=== PATIENT | male | born 1940 | race Caucasian/White ===

== ENCOUNTER 2021-01-23 10:22 | Observation (INO) | payer OTHER, MEDICARE ==
[~2021-01-23] VITALS: Ht 170.2 cm; Wt 96.0 kg
[2021-01-23] MEDS: SODIUM CHLORIDE 0.9% 1,000 ML IV SCH ×2 (11:00→19:00)
[2021-01-23] MEDS ORDERED: CHOL10003 PO (11:11)
[2021-01-23] MEDS ORDERED: MAGN400T36 PO (11:11)
[2021-01-23] MEDS ORDERED: FENO48TA10 PO (11:11)
[2021-01-23] MEDS ORDERED: AMLO-150 PO (11:11)
[2021-01-23] MEDS ORDERED: CHLO50TA PO (11:11)
[2021-01-23] MEDS ORDERED: METO50TA82 PO (11:11)
[2021-01-23] MEDS ORDERED: DOCU-183 PO (11:11)
[2021-01-23] MEDS ORDERED: ASPI81TA45 PO (11:11)
[2021-01-23] MEDS ORDERED: BENA20TA54 PO (11:11)
[2021-01-23] MEDS ORDERED: PIOG15TA69 PO (11:11)
[2021-01-23] MEDS ORDERED: IRON1TAB60 PO (11:11)
[2021-01-23] MEDS ORDERED: ROSU10TA2 PO (11:11)
[2021-01-23] MEDS ORDERED: PARI1CAP3 PO (11:11)
[2021-01-23 11:22] VITALS: BP 143/70
[2021-01-23] MEDS ORDERED: PLEASE ENTER HEIGHT AND WEIGHT MC SCH (11:30)
[2021-01-23 11:35] LABS: BASOPHILS % (AUTO) 1 % (0-1); EOSINOPHILS % (AUTO) 4 % (1-7); LYMPHOCYTES % (AUTO) 21 % (22-44); MEAN CORPUSCULAR HEMOGLOBIN 30.4 pg (27.5-34.5); MEAN CORPUSCULAR HGB CONC 33.4 g/dL (33.2-36.2); MEAN PLATELET VOLUME 8.2 fL (7.4-10.4); MONOCYTES % (AUTO) 9 % (2-9); NEUTROPHILS % (AUTO) 65 % (42-75); PLATELET COUNT 236 x10^3/uL (130-400); RED BLOOD COUNT 4.38 x10^6/uL (4.38-5.82); RED CELL DISTRIBUTION WIDTH 14.4 % (9.4-14.8)
[2021-01-23 11:42] LABS: MD NO
[2021-01-23 11:44] LABS: ANION GAP 5 mmol/L (5-15); CHLORIDE 116 mmol/L (98-107); CREATININE 2.76 mg/dL (0.7-1.3)
[2021-01-23] MEDS ORDERED: MIDAZOLAM 1 MG/ML, 5ML ONE (11:50)
[2021-01-23] MEDS ORDERED: FENTANYL PF 100 MCG/2ML ONE (11:50)
[2021-01-23] MEDS ORDERED: LIDOCAINE 1%, 20ML ONE (11:50)
[2021-01-23] MEDS ORDERED: CEFAZOLIN 1,000 MG ONE (11:50)
[2021-01-23] MEDS ORDERED: CEFAZOLIN PMX 1GM/50ML 50 ML ONE (11:50)
[2021-01-23] MEDS ORDERED: HOLD MEDICATION MC PRN (13:30)
[2021-01-23 14:00] VITALS: BP 135/75
[2021-01-23] MEDS ORDERED: HYDROcodone/APAP 5/325 TABLET PO PRN (14:00)
[2021-01-23] MEDS ORDERED: BENAZEPRIL MC SCH (14:30)
[2021-01-23 18:47] VITALS: BP 136/83
[2021-01-23] MEDS: SODIUM CHLORIDE FLUSH 10ML SYR IVF SCH (20:13)
[2021-01-23] MEDS: METOPROLOL TARTRATE 50 MG TAB PO SCH (20:13)
[2021-01-23 20:45] VITALS: BP 123/70
[2021-01-23] MEDS ORDERED: ATORVASTATIN 80 MG TABLET PO SCH (21:00)
[2021-01-23] MEDS: CEFAZOLIN PMX 1GM/50ML 50 ML IVPB SCH (22:00)
[2021-01-24 02:25] VITALS: BP 134/74
[2021-01-24] MEDS: CEFAZOLIN PMX 1GM/50ML 50 ML IVPB SCH (05:37)
[2021-01-24 08:03] VITALS: BP 159/75
[2021-01-24] MEDS: METOPROLOL TARTRATE 50 MG TAB PO SCH (08:22)
[2021-01-24] MEDS: SODIUM CHLORIDE FLUSH 10ML SYR IVF SCH (08:23)
[2021-01-24] MEDS ORDERED: AMLODIPINE 10 MG TAB PO SCH (09:00)
[2021-01-24] MEDS ORDERED: PIOGLITAZONE 15 MG TABLET PO SCH (09:00)
[2021-01-24] MEDS ORDERED: VIT C HOMEMEDPO SCH (09:00)
[2021-01-24] MEDS ORDERED: FENOFIBRATE NANOCRYSTALLIZED HOMEMEDPO SCH (09:00)
[2021-01-24] MEDS ORDERED: MAGNESIUM OXIDE 400 MG TABLET PO SCH (09:00)
[2021-01-24] MEDS ORDERED: CHLORTHALIDONE 25 MG TABLET PO SCH (09:00)
[2021-01-24] MEDS ORDERED: BENAZEPRIL 20 MG TABLET PO SCH (09:00)
[2021-01-24] MEDS ORDERED: DOCUSATE 100 MG CAPSULE PO SCH (09:00)
[2021-01-24] MEDS ORDERED: ACET325T14 PO (09:00)
[2021-01-24] MEDS ORDERED: [UNRECOGNIZED DRUG - OTHER] HOMEMEDPO SCH (09:00)
[2021-01-24] MEDS ORDERED: VIT B12 HOMEMEDPO SCH (09:00)
[2021-01-24] MEDS ORDERED: ASPIRIN 81 MG TABLET EC PO SCH (09:00)
[2021-01-24] MEDS ORDERED: IRON CARBONYL HOMEMEDPO SCH (09:00)
== END 2021-01-24 10:35 | disposition home or self-care (01) ==
LOC: CACL 10:22 → 5SO 13:21 → CACL 13:30 → 5SO 13:30 → DCLOUNGE 01-24 10:26
PROVIDERS: ADMIT Internal Medicine Cardiovascular Disease; ATTEND Internal Medicine Cardiovascular Disease
DX: I49.5 Sick sinus syndrome (principal); I48.0 Paroxysmal atrial fibrillation; I45.3 Trifascicular block; I10 Essential (primary) hypertension; E11.9 Type 2 diabetes mellitus without complications; Z79.899 Other long term (current) drug therapy
CPT/HCPCS: 33208; 36415; 71045; 71046; 80048; 85025; 96365; 96366; 99156; 99157; C1779; C1785; C1892; G0378; J0690; J2250; J3010; J3490